=== PATIENT | female | born 1960 | race Caucasian/White ===

== ENCOUNTER 2019-01-03 01:46 | Emergency (ER) | payer OTHER, SELFPAY ==
--- NOTE | 2019-01-03 01:49 | ED.ALLEREA ---
HPI - Allergic Reaction General Chief complaint: Allergic Reaction Stated complaint: states allergic reaction to seafood Time Seen by Provider: 01/03/19 01:47 Source: patient Mode of arrival: ambulatory Limitations: no limitations History of Present Illness HPI narrative: 58-year-old female here for evaluation of possible allergic reaction. She states that her dinner last evening she ate shrimp. She states that she has never had a reaction to shrimp in the past however she has had a reaction to crab and count barring the past. She does have an EpiPen at home because of this but did not administer it to herself. No sore throat. No problems breathing. No nausea vomiting. She does have swelling to the right side of her face. Prior to arrival she did take 50 mg of oral Benadryl and also a Pepcid AC. Related Data Previous Rx's Medication Instructions Recorded prednisone 40 mg PO DAILY 5 Days #10 tab 01/03/19 Allergies Allergy/AdvReac Type Severity Reaction Status Date / Time shellfish derived Allergy Anaphylaxis Verified 01/03/19 02:26 Review of Systems Constitutional Denies fatigue and Denies headache(s) ENT Ears, Nose, Mouth, and Throat: Denies vertigo, Denies dizziness and Denies headache(s) Cardiovascular Denies chest pain and Denies dyspnea Respiratory Denies dyspnea Gastrointestinal Gastrointestinal: Denies abdominal pain Genitourinary Denies dysuria Musculoskeletal Denies myalgias and Denies arthralgias Integumentary/Breasts Denies rash Comments: Swelling to right side of face Neurologic Denies vertigo, Denies dizziness and Denies headache(s) Endocrine Denies fatigue Hematologic/Lymphatic Denies easy bleeding and Denies easy bruising [facility] Medical History Healthy adult (Acute) Social History Smoking Status: Never smoker Social History Smoking Status: Never smoker Exam Initial Vital Signs Initial Vital Signs: Vital Signs Temperature 98.2 F 01/03/19 01:52 Pulse Rate 77 01/03/19 01:52 Respiratory Rate 18 01/03/19 01:52 Blood Pressure 123/69 01/03/19 01:52 Pulse Oximetry 95 01/03/19 01:52 Const General: cooperative and comfortable Orientation: alert and awake HENMT Head: normal to inspection and normocephalic Face and sinus: normal facial exam Mouth: oral mucosae normal Throat: posterior oropharynx normal Resp Effort & Inspection: normal respiratory effort Auscultation: clear to auscultation bilaterally Skin Other: Swelling to the right side of the face with some redness around the right eye. Neuro General: alert, awake and oriented x3 Cognition: normal cognition Speech: speech normal Motor: muscle tone normal throughout Sensory Exam: no sensory deficits noted Extrem General: normal to inspection and capillary refill normal Course Orders Ordered: Discontinued Medications Sodium Chloride (Normal Saline 0.9%) 1,000 mls @ 1,000 mls/hr IV BOLUS ONE Stop: 01/03/19 02:51 Last Infusion: 01/03/19 03:17 Dose: 0 mls/hr Admin: 01/03/19 02:03 Dose: 1,000 mls/hr Methylprednisolone (Solu-Medrol 125 Mg Vial) 125 mg IV NOW ONE Stop: 01/03/19 01:53 Last Admin: 01/03/19 02:03 Dose: 125 mg Vital Signs - 8 hr 01/03/19 01:52 01/03/19 02:22 Temperature 98.2 F Pulse Rate 77 75 Respiratory Rate 18 17 Blood Pressure 123/69 Blood Pressure [Right Arm] 123/68 Pulse Oximetry 95 96 MDM - Allergic Reaction MDM Narrative Medical decision making narrative: No respiratory distress. Does have swelling around the right eye. She did take Benadryl and Pepcid AC prior to arrival. She does have an EpiPen with her due to prior reactions. She was given steroids in the emergency department and observed for just over 1 hour with improvement of her symptoms although was not completely resolved. Will discharge home. Will give a short course of some steroids. She was given return precautions and follow-up instructions. She was informed that I would consider her allergic to shellfish. She expressed understanding and agreement with plan. Discharge Plan Departure Patient Disposition: Home Clinical Impression: Allergic reaction Qualifiers: Encounter type: initial encounter Qualified Code(s): T78.40XA - Allergy, unspecified, initial encounter Instructions: DI for General Allergic Reactions Activity Restrictions/Additional Instructions: I would consider yourself allergic to shellfish. You can continue to take Benadryl every 4-6 hours as needed for any itching. Take the steroids as directed. Return to the emergency department for any new or worsening symptoms. Contact your primary doctor for follow-up. Prescriptions: New prednisone 20 mg tablet 40 mg PO DAILY 5 Days Qty: 10 RF: 0
[2019-01-03 01:52] VITALS: BP 123/69; PULSE 77; RESP 18; TEMP 36.8; O2SAT 95; BMI 22.8
[2019-01-03] MEDS: methylPREDNISolone 125 MG/2 ML VIAL IV (02:03)
[2019-01-03] MEDS: SODIUM CHLORIDE 0.9% 1,000 ML 1000 ML IV (02:03)
[2019-01-03 02:22] VITALS: BP 123/68; PULSE 75; RESP 17; O2SAT 96
[2019-01-03 03:18] VITALS: BP 115/65; PULSE 62; RESP 14; O2SAT 97
== END 2019-01-03 03:34 | disposition home or self-care (01) ==
PROVIDERS: Emergency Provider Emergency Medicine
DX: T78.40XA Allergy, unspecified, initial encounter (principal)
CPT/HCPCS: 36591; 96361; 96374; 99283; 99284; J2930